=== PATIENT | female | born 1950 | race Caucasian/White ===

== ENCOUNTER 2016-10-19 13:54 | Emergency (ER) | payer MEDICARE, MEDICAID ==
[~2016-10-19 13:54] MED LIST: CLOZARIL100 M1 PO; DEPAKOTE ER500 M1 PO; MULTIPLE VITAM1 EAC4 PO; NORCO 5/325 TAB1 TAB PO; RISPERDAL1 M2 PO; TOPAMAX50 M3 PO
[2016-10-19] MEDS ORDERED: ATIVAN0.5 M1 PO (14:17)
[2016-10-19] MEDS ORDERED: CLOZARIL25 M1 PO (14:20)
[2016-10-19] MEDS ORDERED: FEROSUL325 M1 PO (14:24)
[2016-10-19] MEDS ORDERED: THERMAZENE50 GM TOP (14:25)
== END 2016-10-19 15:55 ==
LOC: EDMED 13:54
DX: S00.93XA Contusion of unspecified part of head, initial encounter (principal); S50.311A Abrasion of right elbow, initial encounter; F17.210 Nicotine dependence, cigarettes, uncomplicated; W18.30XA Fall on same level, unspecified, initial encounter; Y93.89 Activity, other specified; Y92.009 Unspecified place in unspecified non-institutional (private) residence as the place of occurrence of the external cause; Y99.8 Other external cause status